=== PATIENT | female | born 1945 | race Caucasian/White ===

== ENCOUNTER 2017-07-11 06:36 | Emergency (ER) | payer MEDICARE, OTHER ==
[~2017-07-11] VITALS: Ht 167.6 cm; Wt 71.0 kg
[2017-07-11] MEDS ORDERED: ATOR10TA9 PO (06:43)
[2017-07-11] MEDS ORDERED: LEVO112T4 PO (06:44)
[2017-07-11] MEDS ORDERED: CHOL100011 PO (06:44)
[2017-07-11] MEDS ORDERED: FLUO10TA PO (06:44)
[2017-07-11] MEDS ORDERED: CALC-112 PO (06:45)
[2017-07-11] MEDS ORDERED: HYDROcodone/APAP 5/325 TABLET ONE (06:54)
[2017-07-11] MEDS ORDERED: HYDROcodone/APAP 5/325 TABLET PO ONE (07:00)
[2017-07-11 07:50] LABS: ALBUMIN 3.8 g/dL (3.4-5.0); ANION GAP 6 mmol/L (5-15); CALCIUM 8.5 mg/dL (8.5-10.1); CHLORIDE 99 mmol/L (98-107)
[2017-07-11 07:55] LABS: BASOPHILS # (AUTO) 0.02 x10^3/uL (0-0.1); BASOPHILS % (AUTO) 0 % (0-1); EOSINOPHILS # (AUTO) 0.02 x10^3/uL (0-0.4); EOSINOPHILS % (AUTO) 0 % (1-7); LYMPHOCYTES # (AUTO) 0.71 x10^3/uL (1-3.4); LYMPHOCYTES % (AUTO) 10 % (22-44); MD NO; MEAN CORPUSCULAR HEMOGLOBIN 31.3 pg (27.0-34.8); MEAN CORPUSCULAR HGB CONC 33.6 g/dL (32.4-35.8); MEAN CORPUSCULAR VOLUME 93.2 fL (80-100); MEAN PLATELET VOLUME 7.7 fL (7.4-10.4); MONOCYTES # (AUTO) 0.34 x10^3/uL (0.2-0.8); MONOCYTES % (AUTO) 5 % (2-9); NEUTROPHILS # (AUTO) 6.15 x10^3/uL (1.8-6.8); NEUTROPHILS % (AUTO) 85 % (42-75); PLATELET COUNT 213 x10^3/uL (130-400); RED BLOOD COUNT 4.61 x10^6/uL (3.82-5.3); RED CELL DISTRIBUTION WIDTH 13.4 % (9.6-15.2)
[2017-07-11 08:58] VITALS: BP 126/76
== END 2017-07-11 10:12 | disposition left against medical advice (07) ==
LOC: ED 07:32
DX: M25.561 Pain in right knee (principal); E03.9 Hypothyroidism, unspecified; E78.5 Hyperlipidemia, unspecified; Z96.651 Presence of right artificial knee joint
CPT/HCPCS: 29505; 36415; 80048; 82040; 84550; 85025; 99285